=== PATIENT | female | born 1940 | race Caucasian/White ===

== ENCOUNTER 2021-12-25 02:57 | Emergency (ER) | payer OTHER ==
[~2021-12-25] VITALS: Ht 147.3 cm; Wt 44.0 kg
[2021-12-25] MEDS ORDERED: KETOROLAC TROMETHAMINE 60 MG/2 ML VIAL IM ONE (03:45)
[2021-12-25 04:05] VITALS: BP_SYST 178
[2021-12-25] MEDS ORDERED: NAPR-688 PO (04:42)
[2021-12-25 04:50] VITALS: BP_SYST 164
== END 2021-12-25 04:50 | disposition home or self-care (01) ==
LOC: SED 02:57
DX: M43.6 Torticollis (principal); Z88.5 Allergy status to narcotic agent; Z79.899 Other long term (current) drug therapy
CPT/HCPCS: 96372; 99283; J1885